=== PATIENT | male | born 1945 | race Caucasian/White ===

== ENCOUNTER 2025-02-10 07:45 | Emergency (ER) | payer MEDICARE ==
[2025-02-10] MEDS ORDERED: Sodium Chloride 0.9% 10 ML Syringe FLUSH PRN (09:49)
[2025-02-10] MEDS ORDERED: Propofol 200 MG/20 ML SDV ONE (10:27)
== END 2025-02-10 11:33 | disposition home or self-care (01) ==
LOC: JP.ED 07:45
DX: S52.571A Other intraarticular fracture of lower end of right radius, initial encounter for closed fracture (principal); S52.611A Displaced fracture of right ulna styloid process, initial encounter for closed fracture; I10 Essential (primary) hypertension; E78.00 Pure hypercholesterolemia, unspecified; Z79.899 Other long term (current) drug therapy; W10.9XXA Fall (on) (from) unspecified stairs and steps, initial encounter; Y93.89 Activity, other specified
CPT/HCPCS: 01820-QZ; 25605; 73110-26-RT; 73110-RT; 76000; 76000-26; 99152; 99283; 99283-25; J2704